=== PATIENT | male | born 1985 | race African-American/Black ===

== ENCOUNTER 2018-08-25 10:53 | Emergency (ER) | payer MEDICAID ==
[~2018-08-25] VITALS: Ht 185.4 cm; Wt 65.0 kg
[2018-08-25] MEDS ORDERED: SODIUM CHLORIDE 0.9% 1,000 ML IV ONE (12:03)
[2018-08-25] MEDS ORDERED: ONDANSETRON HCL 4MG/2ML INJ IV STA (12:03)
[2018-08-25] MEDS ORDERED: MAGNESIUM/ALUMINUM HYDROXIDE/SIMETHICONE 30ML UDC PO STA (12:03)
[2018-08-25] MEDS ORDERED: FAMOTIDINE 20MG/2ML VIAL IV STA (12:03)
[2018-08-25] MEDS ORDERED: AZITHROMYCIN 500 MG TABLET PO ONE (12:15)
[2018-08-25] MEDS ORDERED: CEFTRIAXONE SODIUM 250 MG/VIAL IM ONE (12:15)
[2018-08-25 12:20] LABS: CLARITY URINE CLEAR (CLEAR); COLOR URINE YELLOW (YELLOW); KETONES URINE TRACE (NEGATIVE); LEUKOCYTE ESTERASE URINE TRACE (NEGATIVE); NITRITE URINE NEGATIVE (NEGATIVE); OCCULT BLOOD URINE NEGATIVE (NEGATIVE); PH URINE 6.5 (4.5-8.0); PROTEIN URINE NEGATIVE (NEGATIVE); SPECIFIC GRAVITY URINE 1.029 (1.005-1.030)
[2018-08-25 12:45] LABS: BASOPHILS % 0.7 % (0.0-2.0); CHLORIDE 106 mEq/L (98-107); EOSINOPHILS % 3.4 % (0.0-5.0); HEMATOCRIT. 38.8 % (42.0-52.0); MEAN CORPUSCULAR HEMOGLOBIN 32.1 pg (28.0-32.0); MEAN CORPUSCULAR VOLUME 95.7 fL (80.0-94.0); MEAN PLATELET VOLUME 7.6 fl (7.4-10.4); MONOCYTES % 13.2 % (2.0-8.0); NEUTROPHILS % 40.7 % (40.0-76.0); PLATELET 160 x1000/uL (130-400); RED BLOOD CELL COUNT 4.05 mill/uL (4.7-6.1); RED CELL DISTRIBUTION WIDTH 13.6 % (11.6-14.6)
[2018-08-25 16:54] VITALS: BP 112/70
[2018-08-27 07:19] LABS: CHLAMYDIA TRACHOMATIS NAA Negative (Negative); NEISSERIA GONORRHOEAE NAA Negative (Negative)
== END 2018-08-25 16:42 | disposition home or self-care (01) ==
LOC: ER 10:53
DX: K29.70 Gastritis, unspecified, without bleeding (principal); N39.0 Urinary tract infection, site not specified; K21.9 Gastro-esophageal reflux disease without esophagitis; F12.10 Cannabis abuse, uncomplicated; F17.200 Nicotine dependence, unspecified, uncomplicated; Z87.440 Personal history of urinary (tract) infections
CPT/HCPCS: 36415; 80053; 81003; 83690; 85025; 87491; 87591; 96361; 96372; 96374; 96375; 99283; J0696; J2405; J3490; J7030

== ENCOUNTER 2018-10-25 06:15 | Emergency (ER) | payer MEDICAID ==
[~2018-10-25] VITALS: Ht 182.9 cm; Wt 100.0 kg
[2018-10-25] MEDS ORDERED: ONDANSETRON HCL 4MG/2ML INJ IV STA (08:35)
[2018-10-25] MEDS ORDERED: MORPHINE SULFATE 4 MG/ML CPJ (NOT FOR IM USE) IV STA (08:35)
[2018-10-25] MEDS ORDERED: SODIUM CHLORIDE 0.9% 1,000 ML IV ONE ×3 (08:35→14:02)
[2018-10-25] MEDS ORDERED: FAMOTIDINE 20MG/2ML VIAL IV ONE (08:45)
[2018-10-25 09:03] LABS: BASOPHILS % 0.4 % (0.0-2.0); EOSINOPHILS % 0.2 % (0.0-5.0); HEMATOCRIT. 42.5 % (42.0-52.0); HEMOGLOBIN. 14.4 g/dL (14.0-18.0); LYMPHOCYTES % 11.4 % (20.0-50.0); MEAN CORPUSCULAR HEMOGLOBIN 32.7 pg (28.0-32.0); MEAN CORPUSCULAR VOLUME 96.3 fL (80.0-94.0); MEAN PLATELET VOLUME 7.9 fl (7.4-10.4); MONOCYTES % 5.4 % (2.0-8.0); NEUTROPHILS % 82.6 % (40.0-76.0); PLATELET 217 x1000/uL (130-400); RED BLOOD CELL COUNT 4.41 mill/uL (4.7-6.1); RED CELL DISTRIBUTION WIDTH 13.8 % (11.6-14.6)
[2018-10-25 09:11] LABS: CHLORIDE 106 mEq/L (98-107)
[2018-10-25 09:12] LABS: PROTHROMBIN TIME 10.7 sec (9.6-11.0)
[2018-10-25 09:16] LABS: ETHANOL BLOOD < 10 mg/dL
[2018-10-25] MEDS ORDERED: METOCLOPRAMIDE HCL 10MG/2ML VIAL IV ONE ×3 (09:45→14:15)
[2018-10-25] MEDS ORDERED: MAGNESIUM/ALUMINUM HYDROXIDE/SIMETHICONE 30ML UDC PO ONE (10:45)
[2018-10-25] MEDS ORDERED: ONDANSETRON HCL 4MG/2ML INJ IV ONE (10:45)
[2018-10-25 12:35] LABS: CLARITY URINE CLOUDY (CLEAR); COLOR URINE YELLOW (YELLOW); KETONES URINE 1+ (NEGATIVE); LEUKOCYTE ESTERASE URINE TRACE (NEGATIVE); NITRITE URINE NEGATIVE (NEGATIVE); OCCULT BLOOD URINE NEGATIVE (NEGATIVE); PH URINE 7.5 (4.5-8.0); PROTEIN URINE NEGATIVE (NEGATIVE); SPECIFIC GRAVITY URINE 1.021 (1.005-1.030)
[2018-10-25 12:52] LABS: *AMPHETAMINES SCREEN URINE NEGATIVE (NEGATIVE)
[2018-10-25 12:53] LABS: *BARBITURATES SCREEN URINE NEGATIVE (NEGATIVE); *BENZODIAZEPINES SCREEN URINE NEGATIVE (NEGATIVE); *COCAINE SCREEN URINE NEGATIVE (NEGATIVE); CANNABINOID URINE SCREEN PRESUMTIVE POSITIVE (NEGATIVE); METHADONE URINE SCREEN NEGATIVE (NEGATIVE); OPIATES URINE SCREEN PRESUMTIVE POSITIVE (NEGATIVE); PHENCYCLIDINE URINE SCREEN NEGATIVE (NEGATIVE)
[2018-10-25 14:32] VITALS: BP 151/71
== END 2018-10-25 14:42 | disposition home or self-care (01) ==
LOC: ER 06:37
DX: K29.70 Gastritis, unspecified, without bleeding (principal); R11.2 Nausea with vomiting, unspecified; F17.290 Nicotine dependence, other tobacco product, uncomplicated
CPT/HCPCS: 36415; 74176; 80053; 80305; 80320; 81003; 83690; 83880; 84484; 85025; 85610; 85730; 93005; 96361; 96374; 96375; 96376; 99284; 99406; J2270; J2405; J2765; J3490; J7030; Z7610; G0480

== ENCOUNTER 2019-03-07 11:19 | Inpatient (IN) | payer MEDICAID ==
[~2019-03-07] VITALS: Ht 185.4 cm; Wt 68.0 kg
[2019-03-07] MEDS ORDERED: PANTOPRAZOLE SODIUM 40 MG/VIAL IV STA (11:36)
[2019-03-07] MEDS ORDERED: ONDANSETRON HCL 4MG/2ML INJ IV STA (11:36)
[2019-03-07] MEDS ORDERED: SODIUM CHLORIDE 0.9% 1,000 ML IV ONE (11:36)
[2019-03-07] MEDS ORDERED: FENTANYL CITRATE/PF 50MCG/ML 2ML VIAL IV ONE (11:45)
[2019-03-07 11:50] LABS: BASOPHILS % 0.5 % (0.0-2.0); EOSINOPHILS % 0.7 % (0.0-5.0); HEMATOCRIT. 41.8 % (42.0-52.0); HEMOGLOBIN. 14.3 g/dL (14.0-18.0); MEAN CORPUSCULAR HEMOGLOBIN 32.3 pg (28.0-32.0); MEAN CORPUSCULAR VOLUME 94.7 fL (80.0-94.0); MEAN PLATELET VOLUME 7.8 fl (7.4-10.4); MONOCYTES % 6.3 % (2.0-8.0); NEUTROPHILS % 76.5 % (40.0-76.0); PLATELET 186 x1000/uL (130-400); RED BLOOD CELL COUNT 4.41 mill/uL (4.7-6.1); RED CELL DISTRIBUTION WIDTH 13.6 % (11.6-14.6)
[2019-03-07 11:57] LABS: INR 1.1; PROTHROMBIN TIME 11.2 sec (9.6-11.0)
[2019-03-07 12:01] LABS: ETHANOL BLOOD < 10 mg/dL
[2019-03-07 12:12] LABS: CHLORIDE 108 mEq/L (98-107)
[2019-03-07 15:00] VITALS: BP 155/91
[2019-03-07 16:00] VITALS: BP 140/87
[2019-03-07] MEDS ORDERED: ACETAMINOPHEN 325MG TABLET PO PRN (16:00)
[2019-03-07] MEDS: ONDANSETRON HCL 4MG/2ML INJ IV PRN ×2 (16:32→21:59)
[2019-03-07] MEDS: MORPHINE SULFATE 2 MG/ML CPJ (NOT FOR IM USE) IV PRN ×2 (17:18→22:08)
[2019-03-07] MEDS ORDERED: GABA250S4 PO (18:18)
[2019-03-07 20:00] VITALS: BP 133/84
[2019-03-07] MEDS: DEXT 5%/0.45% NACL 1000ML 1,000 ML IV SCH (20:15)
[2019-03-07 23:54] LABS: CLARITY URINE CLEAR (CLEAR); COLOR URINE YELLOW (YELLOW); KETONES URINE 3+ (NEGATIVE); LEUKOCYTE ESTERASE URINE 1+ (NEGATIVE); NITRITE URINE NEGATIVE (NEGATIVE); OCCULT BLOOD URINE NEGATIVE (NEGATIVE); PH URINE 7.5 (4.5-8.0); PROTEIN URINE 1+ (NEGATIVE); SPECIFIC GRAVITY URINE 1.028 (1.005-1.030); UROBILINOGEN URINE 0.2 E.U./dL (0.2-1.0)
[2019-03-08] VITALS: BP 142/84
[2019-03-08 00:05] LABS: *BENZODIAZEPINES SCREEN URINE NEGATIVE (NEGATIVE); *COCAINE SCREEN URINE NEGATIVE (NEGATIVE); CANNABINOID URINE SCREEN PRESUMTIVE POSITIVE (NEGATIVE)
[2019-03-08 00:07] LABS: METHADONE URINE SCREEN NEGATIVE (NEGATIVE); OPIATES URINE SCREEN PRESUMTIVE POSITIVE (NEGATIVE); PHENCYCLIDINE URINE SCREEN NEGATIVE (NEGATIVE)
[2019-03-08 00:09] LABS: *AMPHETAMINES SCREEN URINE NEGATIVE (NEGATIVE)
[2019-03-08 00:10] LABS: *BARBITURATES SCREEN URINE NEGATIVE (NEGATIVE)
[2019-03-08 04:00] VITALS: BP 114/51
[2019-03-08] MEDS: DEXT 5%/0.45% NACL 1000ML 1,000 ML IV SCH ×2 (05:18→13:46)
[2019-03-08] MEDS: ONDANSETRON HCL 4MG/2ML INJ IV PRN ×3 (05:20→19:56)
[2019-03-08 07:44] LABS: BASOPHILS % 0.2 % (0.0-2.0); EOSINOPHILS % 0.1 % (0.0-5.0); HEMATOCRIT. 38.6 % (42.0-52.0); HEMOGLOBIN. 13.2 g/dL (14.0-18.0); LYMPHOCYTES % 20.9 % (20.0-50.0); MEAN CORPUSCULAR HEMOGLOBIN 32.5 pg (28.0-32.0); MEAN CORPUSCULAR VOLUME 94.6 fL (80.0-94.0); MEAN PLATELET VOLUME 8.6 fl (7.4-10.4); MONOCYTES % 10.9 % (2.0-8.0); NEUTROPHILS % 67.9 % (40.0-76.0); PLATELET 164 x1000/uL (130-400); RED BLOOD CELL COUNT 4.08 mill/uL (4.7-6.1); RED CELL DISTRIBUTION WIDTH 13.2 % (11.6-14.6)
[2019-03-08 08:00] VITALS: BP 105/69
[2019-03-08 08:16] LABS: CHLORIDE 104 mEq/L (98-107)
[2019-03-08] MEDS: FAMOTIDINE 20MG/2ML VIAL IV SCH ×2 (09:35→19:56)
[2019-03-08 12:26] VITALS: BP 154/90
[2019-03-08] MEDS: MORPHINE SULFATE 2 MG/ML CPJ (NOT FOR IM USE) IV PRN ×2 (12:55→19:56)
[2019-03-08 16:17] VITALS: BP 134/83
[2019-03-08] MEDS ORDERED: ABAC1TAB14 MT (19:50)
[2019-03-08 20:00] VITALS: BP 131/85
[2019-03-09] VITALS (8 sets, daily range): BP systolic 110–157; BP diastolic 59–99
[2019-03-09] MEDS: MORPHINE SULFATE 2 MG/ML CPJ (NOT FOR IM USE) IV PRN ×4 (00:38→20:32)
[2019-03-09] MEDS: DEXT 5%/0.45% NACL 1000ML 1,000 ML IV SCH ×2 (00:47→11:02)
[2019-03-09] MEDS: ONDANSETRON HCL 4MG/2ML INJ IV PRN ×4 (02:30→20:25)
[2019-03-09 08:01] LABS: BASOPHILS % 0.3 % (0.0-2.0); EOSINOPHILS % 0.7 % (0.0-5.0); HEMATOCRIT. 39.3 % (42.0-52.0); HEMOGLOBIN. 13.5 g/dL (14.0-18.0); LYMPHOCYTES % 23.7 % (20.0-50.0); MEAN CORPUSCULAR HEMOGLOBIN 32.3 pg (28.0-32.0); MEAN CORPUSCULAR VOLUME 94.2 fL (80.0-94.0); MEAN PLATELET VOLUME 8.4 fl (7.4-10.4); MONOCYTES % 12.1 % (2.0-8.0); NEUTROPHILS % 63.2 % (40.0-76.0); PLATELET 135 x1000/uL (130-400); RED BLOOD CELL COUNT 4.17 mill/uL (4.7-6.1); RED CELL DISTRIBUTION WIDTH 13.4 % (11.6-14.6)
[2019-03-09 08:02] LABS: CHLORIDE 103 mEq/L (98-107)
[2019-03-09] MEDS: FAMOTIDINE 20MG/2ML VIAL IV SCH ×2 (09:05→20:25)
[2019-03-09 09:06] LABS: ABSOLUTE LYMPHOCYTES 1.5 x10E3/uL (0.7-3.1); ABSOLUTE MONOCYTES 0.7 x10E3/uL (0.1-0.9); ABSOLUTE NEUTROPHILS 4.5 x10E3/uL (1.4-7.0); BASOPHILS 0 % (Not Estab.); HEMOGLOBIN 12.7 g/dL (13.0-17.7); IMMATURE GRANULOCYTES 0 % (Not Estab.); LYMPHOCYTES 22 % (Not Estab.); MEAN CORPUSCULAR HEMOGLOBIN 30.4 pg (26.6-33.0); MEAN CORPUSCULAR HGB CONC. 32.6 g/dL (31.5-35.7); MEAN CORPUSCULAR VOLUME 93 fL (79-97); MONOCYTES 11 % (Not Estab.); NEUTROPHILS 67 % (Not Estab.); PLATELETS 166 x10E3/uL (150-450); RBC 4.18 x10E6/uL (4.14-5.80); RED CELL DISTRIBUTION WIDTH 13.5 % (12.3-15.4); WBC 6.8 x10E3/uL (3.4-10.8)
[2019-03-09 14:12] LABS: % CD 3 POS. LYMPHOCYTES 77.3 % (57.5-86.2); % CD 8 POS. LYMPH 51.2 % (12.0-35.5); ABSOLUTE CD 3 1160 /uL (622-2402); ABSOLUTE CD 4 HELPER 375 /uL (359-1519); ABSOLUTE CD 8 SUPPRESSOR 768 /uL (109-897); CD4/CD8 RATIO 0.49 (0.92-3.72)
[2019-03-09] MEDS ORDERED: POTASSIUM CHLORIDE 20MEQ/PACKET PO SCH (16:00)
== END 2019-03-09 21:05 | disposition home or self-care (01) | DRG 249 ==
LOC: ER 11:19 → 8WST 13:36 → EDBEDREQTM 13:39 → EDBEDREQ 13:39 → ENRESERV 13:46
PROVIDERS: ADMIT Internal Medicine; ATTEND Internal Medicine
DX: K52.9 Noninfective gastroenteritis and colitis, unspecified (principal); E87.8 Other disorders of electrolyte and fluid balance, not elsewhere classified; M16.0 Bilateral primary osteoarthritis of hip; Q53.112 Unilateral inguinal testis; E05.90 Thyrotoxicosis, unspecified without thyrotoxic crisis or storm; Z21 Asymptomatic human immunodeficiency virus [HIV] infection status
CPT/HCPCS: 36415; 71045; 74176; 76700; 80048; 80053; 80076; 80305; 80320; 81003; 83880; 84484; 85025; 86359; 86360; 93005; 93970; 96361; 96374; 96375; 99285; C9113; J2270; J2405; J3010; J3490; J7030; G0480

== ENCOUNTER 2022-01-05 16:56 | Emergency (ER) | payer MEDICAID ==
[~2022-01-05] VITALS: Ht 185.4 cm; Wt 70.0 kg
[~2022-01-05 16:56] MED LIST: ABAC1TAB14 MT; GABA250S4 PO
[2022-01-05 17:29] VITALS: BP 146/93
[2022-01-07] MEDS ORDERED: LEVO500T90 MT (12:17)
== END 2022-01-06 01:30 | disposition left against medical advice (07) ==
LOC: ER 16:56
DX: Z53.21 Procedure and treatment not carried out due to patient leaving prior to being seen by health care provider (principal)

== ENCOUNTER 2022-11-13 05:09 | Emergency (ER) | payer MEDICAID ==
[~2022-11-13] VITALS: Ht 190.5 cm; Wt 68.0 kg
[~2022-11-13 05:09] MED LIST changes: +GABA250S11 PO; -GABA250S4 PO; +LEVO-65 MT
[2022-11-13 05:14] VITALS: O2SAT 100
[2022-11-13] MEDS ORDERED: ONDANSETRON HCL 4MG/2ML INJ IV STA (05:29)
[2022-11-13] MEDS ORDERED: SODIUM CHLORIDE 0.9% 1,000 ML IV ONE (05:30)
[2022-11-13] MEDS ORDERED: KETOROLAC 15MG/ML VIAL IV ONE (06:00)
[2022-11-13 06:40] LABS: BASOPHILS % 0.9 % (0.0-2.0); CHLORIDE 107 mEq/L (98-107); HEMATOCRIT. 34.7 % (42.0-52.0); HEMOGLOBIN. 11.8 g/dL (14.0-18.0); INDEX HEMOLYSI 1 (1-3); INDEX ICTERIC 1 (1-4); INDEX LIPEMIC 1 (1-3); LYMPHOCYTES % 17.5 % (20.0-50.0); MEAN CORPUSCULAR HEMOGLOBIN 30.8 pg (28.0-32.0); MEAN CORPUSCULAR VOLUME 90.6 fL (80.0-94.0); MEAN PLATELET VOLUME 7.3 fl (7.4-10.4); MONOCYTES % 10.5 % (2.0-8.0); NEUTROPHILS % 69.1 % (40.0-76.0); PLATELET 348 x1000/uL (130-400); POTASSIUM 3.4 mEq/L (3.5-5.1); RED BLOOD CELL COUNT 3.83 mill/uL (4.7-6.1); RED CELL DISTRIBUTION WIDTH 13.8 % (11.6-14.6); SODIUM 136 mEq/L (136-145); WHITE BLOOD COUNT 6.5 x1000/uL (4.5-11.0)
[2022-11-13 06:47] LABS: ALANINE AMINOTRANSFERASE 13 IU/L (13-61); ALBUMIN 2.9 g/dL (3.4-5.0); ASPARTATE AMINOTRANSFERASE 15 IU/L (15-37); BILIRUBIN TOTAL 0.2 mg/dL (0.1-1.0); CALCIUM 8.3 mg/dL (8.5-10.1); CARBON DIOXIDE 26 mEq/L (21-32); CREATININE 0.9 mg/dL (0.6-1.3); ETHANOL BLOOD < 10 mg/dL (-10); GLUCOSE 89 mg/dL (70-105); PROTEIN TOTAL 7.8 g/dL (6.0-8.3); UREA NITROGEN BLOOD 10 mg/dL (7-21)
[2022-11-13] MEDS ORDERED: ONDA4TAB50 MT (07:49)
[2022-11-13] MEDS ORDERED: GABA-529 MT (07:49)
[2022-11-13 08:15] VITALS: BP 125/77; PULSE 72; RESP 15; TEMP 98.2
== END 2022-11-13 08:19 | disposition home or self-care (01) ==
LOC: ER 05:12
DX: R11.2 Nausea with vomiting, unspecified (principal); F12.10 Cannabis abuse, uncomplicated
CPT/HCPCS: 80053; 80320; 83690; 85025; 36415; 96361; 96374; 96375; 99284; J1885; J2405; J7030; Z7610 ×4; G0480

== ENCOUNTER 2023-03-14 11:41 | Emergency (ER) | payer MEDICAID ==
[~2023-03-14] VITALS: Ht 185.4 cm; Wt 69.0 kg
[~2023-03-14 11:41] MED LIST changes: +GABA-529 MT; +ONDA4TAB50 MT
[2023-03-14 11:56] VITALS: BP 111/63; PULSE 65; RESP 16; TEMP 98.4; O2SAT 100
[2023-03-14] MEDS ORDERED: ONDANSETRON HCL 4MG/2ML INJ IV STA (12:04)
[2023-03-14] MEDS ORDERED: MORPHINE SULFATE 4 MG/ML CPJ (NOT FOR IM USE) IV STA (12:04)
[2023-03-14] MEDS ORDERED: SODIUM CHLORIDE 0.9% 1,000 ML IV ONE (12:15)
[2023-03-14 12:59] LABS: BASOPHILS % 0.7 % (0.0-2.0); HEMATOCRIT. 40.6 % (42.0-52.0); LYMPHOCYTES % 18.2 % (20.0-50.0); MEAN CORPUSCULAR HEMOGLOBIN 31.4 pg (28.0-32.0); MEAN CORPUSCULAR HGB CONC 34.5 g/dL (31.0-37.0); MEAN PLATELET VOLUME 7.5 fl (7.4-10.4); MONOCYTES % 8.7 % (2.0-8.0); NEUTROPHILS % 72.4 % (40.0-76.0); PLATELET 252 x1000/uL (130-400); RED BLOOD CELL COUNT 4.46 mill/uL (4.7-6.1); RED CELL DISTRIBUTION WIDTH 13.9 % (11.6-14.6); WHITE BLOOD COUNT 7.1 x1000/uL (4.5-11.0)
[2023-03-14 13:10] LABS: PROTHROMBIN TIME 10.9 sec (9.6-11.0)
[2023-03-14 13:20] LABS: ALANINE AMINOTRANSFERASE 7 IU/L (10-49); ALBUMIN 4.7 g/dL (3.2-4.8); ASPARTATE AMINOTRANSFERASE 19 IU/L (<34); BILIRUBIN TOTAL 0.5 mg/dL (0.1-1.0); CALCIUM 10.1 mg/dL (8.7-10.4); CARBON DIOXIDE 27 mEq/L (21-32); CHLORIDE 101 mEq/L (98-107); CREATININE 0.9 mg/dL (0.6-1.3); GLUCOSE 90 mg/dL (70-105); POTASSIUM 3.6 mEq/L (3.5-5.1); PROTEIN TOTAL 8.4 g/dL (6.0-8.3); SODIUM 138 mEq/L (136-145); UREA NITROGEN BLOOD 14 mg/dL (9-23)
[2023-03-14 14:45] LABS: LACTIC ACID 2.6 mmol/L (0.4-2.0)
== END 2023-03-14 22:02 | disposition left against medical advice (07) ==
LOC: ER 11:41
DX: R11.2 Nausea with vomiting, unspecified (principal)
CPT/HCPCS: 99283; 80053; 83605; 83690; 85025; 85610; 36415; J7030

== ENCOUNTER 2024-07-03 01:11 | Emergency (ER) | payer MEDICAID ==
[~2024-07-03] VITALS: Ht 180.3 cm; Wt 73.0 kg
[~2024-07-03 01:11] MED LIST changes: +ARIP5TAB51 PO; +BICT1TAB PO; +DULO60CA64 PO; +GABA-1180 PO; +IBUP-2030 MT; +LEVO750T68 PO; +MELA3TAB40 PO; +METR-167 PO; +NIZOS TP; +PANT40TA51 PO
[2024-07-03 01:19] VITALS: BP 135/84; PULSE 75; RESP 20; TEMP 36.6; O2SAT 98
== END 2024-07-03 01:35 | disposition left against medical advice (07) ==
LOC: ER 01:11
DX: R10.9 Unspecified abdominal pain (principal); Z53.21 Procedure and treatment not carried out due to patient leaving prior to being seen by health care provider

== ENCOUNTER 2024-07-06 07:14 | Emergency (ER) | payer MEDICAID ==
[~2024-07-06] VITALS: Ht 175.3 cm; Wt 72.0 kg
[2024-07-06 07:18] VITALS: TEMP 36.6; O2SAT 98
[2024-07-06] MEDS: ONDANSETRON HCL 4MG/2ML INJ IV STA (07:18)
[2024-07-06] MEDS: SODIUM CHLORIDE 0.9% 1,000 ML IV ONE (08:25)
[2024-07-06 08:38] LABS: BASOPHILS % 0.4 % (0.0-2.0); EOSINOPHILS % 1.4 % (0.0-5.0); HEMATOCRIT. 42.6 % (42.0-52.0); LYMPHOCYTES % 17.6 % (20.0-50.0); MEAN CORPUSCULAR HEMOGLOBIN 31.5 pg (28.0-32.0); MEAN CORPUSCULAR HGB CONC 32.9 g/dL (31.0-37.0); MEAN CORPUSCULAR VOLUME 95.7 fL (80.0-94.0); MEAN PLATELET VOLUME 7.3 fl (7.4-10.4); MONOCYTES % 11.6 % (2.0-8.0); PLATELET 226 x1000/uL (130-400); RED BLOOD CELL COUNT 4.45 mill/uL (4.7-6.1); WHITE BLOOD COUNT 7.5 x1000/uL (4.5-11.0)
[2024-07-06 08:44] LABS: PROTHROMBIN TIME 11.2 sec (9.6-11.0)
[2024-07-06 08:48] LABS: CHLORIDE 102 mEq/L (98-107); SODIUM 139 mEq/L (136-145)
[2024-07-06 08:49] LABS: CARBON DIOXIDE 27 mEq/L (21-32)
[2024-07-06 08:50] LABS: CALCIUM 9.7 mg/dL (8.7-10.4)
[2024-07-06 08:54] LABS: CREATININE 0.9 mg/dL (0.6-1.3)
[2024-07-06 08:55] LABS: GLUCOSE 136 mg/dL (70-105); UREA NITROGEN BLOOD 15 mg/dL (9-23)
[2024-07-06] MEDS: HALOPERIDOL LACTATE 5MG/ML VIAL IM ONE (08:55)
[2024-07-06 08:56] LABS: ALANINE AMINOTRANSFERASE 10 IU/L (10-49); ALBUMIN 4.4 g/dL (3.2-4.8); ASPARTATE AMINOTRANSFERASE 23 IU/L (<34)
[2024-07-06 08:57] LABS: BILIRUBIN DIRECT 0.2 mg/dL (<=3.0); BILIRUBIN TOTAL 0.7 mg/dL (0.1-1.0); ETHANOL BLOOD < 10 mg/dL (<10)
[2024-07-06] MEDS: METOCLOPRAMIDE HCL 10MG/2ML VIAL IV ONE (10:55)
[2024-07-06] MEDS ORDERED: ONDA-239 PO (11:47)
[2024-07-06 12:00] VITALS: BP 168/109; PULSE 99; RESP 16; O2SAT 100
== END 2024-07-06 12:58 | disposition home or self-care (01) ==
LOC: ER 07:14
DX: R11.10 Vomiting, unspecified (principal); F12.10 Cannabis abuse, uncomplicated; I10 Essential (primary) hypertension; Q53.10 Unspecified undescended testicle, unilateral; Z79.624 Long term (current) use of inhibitors of nucleotide synthesis; Z79.899 Other long term (current) drug therapy
CPT/HCPCS: 80076; 80048; 80320; 83690; 85025; 85610; 36415; 74176; 96361; 96372; 96374; 99285; J1630; J2765; J7030; Z7610 ×4; G0480